=== PATIENT | female | born 1985 | race Hispanic/Latino ===

== ENCOUNTER 2016-12-17 07:49 | Day surgery (SDC) | payer OTHER ==
[~2016-12-17] VITALS: Ht 157.5 cm; Wt 153.0 kg
[~2016-12-17 07:49] MED LIST: ULTRAM50 M1 PO
[2016-12-17] MEDS ORDERED: PRENATAL1 TA1 PO (08:03)
[2016-12-17 08:37] LABS: HEMATOCRIT 39.4 % (37.0-47.0); HEMOGLOBIN 13.5 g/dl (12.0-16.0); IMMATURE GRANULOCYTES 0.3 % (0.0-1.0); MEAN CELL VOLUME 81.2 fL CALC (80.0-100.0); MEAN CORPUSCULAR HGB 27.8 pG CALC (26.0-32.0); MEAN CORPUSCULAR HGB CONC 34.3 g/L CALC (32.0-36.0); NEUT# 5.04 thou/uL (2.00-7.15); RED BLOOD COUNT 4.85 mill/uL (4.20-5.60); RED CELL DISTRI WIDTH 13.9 % (11.5-15.5)
[2016-12-17 08:40] LABS: URINE BILIRUBIN - DIPSTICK NEGATIVE (NEGATIVE); URINE BLOOD DIPSTICK NEGATIVE (NEGATIVE); URINE CLARITY SLIGHT CLOUDY; URINE COLOR YELLOW; URINE GLUCOSE - DIPSTICK NEGATIVE (NEGATIVE); URINE KETONE NEGATIVE (NEGATIVE); URINE LEUK ESTERASE NEGATIVE (NEGATIVE); URINE NITRITE - DIPSTICK NEGATIVE (Negative); URINE PH 5.5 (4.5-8.0); URINE PROTEIN - DIPSTICK NEGATIVE (NEG-TRACE); URINE SPECIFIC GRAVITY >=1.030; URINE UROBILINOGEN - DIPSTICK 0.2 E.U./dL (0.2)
[2016-12-17 08:53] LABS: ALKALINE PHOSPHATASE 72 u/l (38-126); ANION GAP 14 (6-22 (CALC)); BILIRUBIN, TOTAL 0.5 mg/dL (0.0-1.4); BUN 8 mg/dL (7-17); BUN/CREATININE RATIO 15 (12-20 (CALC)); CALCIUM 9.6 mg/dL (8.4-10.2); CARBON DIOXIDE 22 mmol/l (22-30); CHLORIDE 106 mmol/l (95-108); CREATININE 0.5 mg/dL (0.5-1.0); GFR > 60 ML/MIN (>=60 (CALC)); GFR FOR AFR.AMER. > 60 ML/MIN (>=60 (CALC)); GLUCOSE 86 mg/dL (65-105); POTASSIUM 3.7 mmol/l (3.5-5.1); SGOT/AST 19 u/l (14-36); SGPT/ALT 28 u/l (9-52); SODIUM 139 mmol/l (137-146); TOTAL PROTEIN 7.1 g/dL (6.3-8.2)
[2016-12-17 09:09] LABS: BETA-HCG, QUANT(RESULT NUMBER) 811 mIU/mL
[2016-12-17] MEDS ORDERED: NORCO1 TA1 PO (13:43)
[2016-12-17] MEDS ORDERED: METHERGINE0.2 M1 PO (13:43)
[2016-12-17 14:49] VITALS: BP 110/76
== END 2016-12-17 14:45 | disposition home or self-care (01) | DRG 770 ==
LOC: ED 07:49 → ED-I 11:40 → ED 11:44 → ORM 11:45
PROVIDERS: Emergency Medicine
PROC: 10D17ZZ Extraction of Products of Conception, Retained, Via Natural or Artificial Opening (ICD-10-PCS; principal; 2016-12-17)
DX: O02.1 Missed abortion (principal); D35.2 Benign neoplasm of pituitary gland

== ENCOUNTER 2018-09-03 15:24 | Emergency (ER) | payer SELFPAY ==
[~2018-09-03] VITALS: Ht 157.5 cm; Wt 75.9 kg
[~2018-09-03 15:24] MED LIST changes: +METHERGINE0.2 M1 PO; +NORCO1 TA1 PO; +PRENATAL1 TA1 PO
[2018-09-03 16:17] LABS: URINE BILIRUBIN - DIPSTICK NEGATIVE (NEGATIVE); URINE BLOOD DIPSTICK LARGE (NEGATIVE); URINE COLOR YELLOW; URINE GLUCOSE - DIPSTICK NEGATIVE (NEGATIVE); URINE KETONE NEGATIVE (NEGATIVE); URINE LEUK ESTERASE SMALL (NEGATIVE); URINE NITRITE - DIPSTICK POSITIVE (Negative); URINE PH 6.5 (4.5-8.0); URINE PROTEIN - DIPSTICK NEGATIVE (NEG-TRACE); URINE SPECIFIC GRAVITY <=1.005; URINE UROBILINOGEN - DIPSTICK 0.2 E.U./dL (0.2)
[2018-09-03] MEDS ORDERED: CEPHALEXIN500 M1 PO (16:20)
[2018-09-03 16:25] LABS: URINE RBC TNTC RBC/hpf (0-5); URINE SQUAMOUS EPITHELIAL CELL FEW EPI/hpf (0-FEW)
[2018-09-03 16:26] LABS: URINE BACTERIA MODERATE hpf
[2018-09-03 16:35] VITALS: BP 116/59
== END 2018-09-03 16:35 | disposition home or self-care (01) | DRG 833 ==
LOC: ED 15:24
PROVIDERS: Family Medicine
DX: O23.43 Unspecified infection of urinary tract in pregnancy, third trimester (principal); Z3A.30 30 weeks gestation of pregnancy

== ENCOUNTER 2024-09-10 07:25 | Emergency (ER) | payer SELFPAY ==
[~2024-09-10] VITALS: Ht 157.5 cm; Wt 87.0 kg
[2024-09-10] VITALS (9 sets, daily range): BP systolic 103–124; BP diastolic 64–84
[~2024-09-10 07:25] MED LIST changes: +CEPHALEXIN500 M1 PO
[2024-09-10] MEDS ORDERED: METOCLOPRAMIDE HCL 10 MG/2 ML SDV IV ONE (07:35)
[2024-09-10] MEDS ORDERED: KETOROLAC TROMETHAMINE 15 MG/ML SDV IV ONE (07:35)
[2024-09-10] MEDS ORDERED: DiphenhydrAMINE HCL 50 MG/ML SDV IV ONE (07:35)
[2024-09-10] MEDS ORDERED: SODIUM CHLORIDE 0.9% 1,000 ML IV ONE (07:35)
[2024-09-10 08:37] LABS: BASO% 0.2 % (0-3); EOS% 9.1 % (0-8); HEMATOCRIT 40.5 % (37.0-47.0); HEMOGLOBIN 13.4 g/dl (12.0-16.0); IMMATURE GRANULOCYTES 0.1 % (0.0-5.0); LYMPH% 26.2 % (15-41); MEAN CELL VOLUME 85.8 fL CALC (80.0-100.0); MEAN CORPUSCULAR HGB 28.4 pG CALC (26.0-32.0); MEAN CORPUSCULAR HGB CONC 33.1 g/dL CAL (32.0-36.0); MONO% 4.9 % (2-13); NEUT# 4.85 thou/uL (2.00-7.15); NEUT% 59.5 % (42-76); RED BLOOD COUNT 4.72 mill/uL (4.20-5.60); RED CELL DISTRI WIDTH 13.4 % (11.5-15.5)
[2024-09-10 08:47] LABS: CREATININE 0.6 mg/dL (0.5-1.0); POTASSIUM 4.1 mmol/l (3.5-5.1)
[2024-09-10 08:49] LABS: ALBUMIN 4.5 g/dL (3.2-5.0); BILIRUBIN, TOTAL 0.6 mg/dL (0.02-1.3); TOTAL PROTEIN 8.1 g/dL (6.3-8.2)
[2024-09-10] MEDS ORDERED: DEXAMETHASONE SOD. PHOSPHATE 10 MG/ML VIAL IV ONE (10:05)
== END 2024-09-10 10:52 | disposition home or self-care (01) | DRG 103 ==
LOC: ED 07:25
PROVIDERS: Family Medicine
DX: R51.9 Headache, unspecified (principal); Z20.822 Contact with and (suspected) exposure to COVID-19
CPT/HCPCS: J1100; J1200; J1885; J2765